=== PATIENT | female | born 1960 | race Caucasian/White ===

== ENCOUNTER 2019-06-21 11:56 | Outpatient (CLI) | payer BC, SELFPAY ==
--- NOTE | 2019-06-21 12:12 | XRR_ITS ---
PROCEDURE INFORMATION: Exam: XR Chest, 2 Views Exam date and time: 06/21/2019 12:26 PM Age: 58 years old Clinical indication: Condition or disease; Lung condition and disease; Pneumonia; Other: Not specified TECHNIQUE: Imaging protocol: XR of the chest Views: 2 views. COMPARISON: No relevant prior studies available. FINDINGS: Lungs: Low lung volumes No consolidation. Pleural space: Unremarkable. No pleural effusion. No pneumothorax. Heart/Mediastinum: Unremarkable. No cardiomegaly. Bones/joints: There is dorsal spine osteopenia and osteoarthritis. XR/XR chest 2V* [id number] IMPRESSION: No acute findings. Lung low lung volumes Dorsal spine osteopenia and osteoarthritis
== END 2019-06-21 11:57 | disposition home or self-care (01) ==
LOC: RAD 12:08
PROVIDERS: Family Provider Family Medicine; PCP Family Medicine; Visit Provider Family Medicine
DX: J18.9 Pneumonia, unspecified organism (principal); M85.88 Other specified disorders of bone density and structure, other site
CPT/HCPCS: 71046

== ENCOUNTER 2020-08-15 11:29 | Outpatient (CLI) | payer OTHER, SELFPAY ==
--- NOTE | 2020-08-15 11:39 | XRR_ITS ---
PROCEDURE INFORMATION: Exam: XR Right Finger(s) Exam date and time: 08/15/2020 11:43 AM Age: 60 years old Clinical indication: Pain; Finger(s); Right; Additional info: R thumb pain TECHNIQUE: Imaging protocol: XR Right fingers. Views: Minimum 2 views. COMPARISON: No relevant prior studies available. FINDINGS: Bones/joints: Negative for acute bony abnormality. Bone spurs are present in the dorsal aspect of the interphalangeal articulation. Soft tissues: Normal. XR/XR finger RT min 2V 12130 IMPRESSION: 1. No acute findings. 2. Bone spurs dorsal aspect of the thumb
== END 2020-08-15 11:30 | disposition home or self-care (01) ==
PROVIDERS: Family Provider Family Medicine; PCP Family Medicine; Visit Provider Family Medicine
DX: M79.644 Pain in right finger(s) (principal)
CPT/HCPCS: 73140

== ENCOUNTER → 2020-12-13 09:42 | Outpatient (BNVA) | payer OTHER, SELFPAY | PROVIDERS: Family Provider Family Medicine; PCP Family Medicine; Visit Provider Internal Medicine Rheumatology | DX: H54.61 Unqualified visual loss, right eye, normal vision left eye (principal); M19.90 Unspecified osteoarthritis, unspecified site; R76.8 Other specified abnormal immunological findings in serum; Z11.59 Encounter for screening for other viral diseases; Z11.1 Encounter for screening for respiratory tuberculosis; Z79.899 Other long term (current) drug therapy; R20.2 Paresthesia of skin; Z71.89 Other specified counseling | CPT/HCPCS: 99205 ==

== ENCOUNTER 2020-12-14 10:20 | Outpatient (CLI) | payer OTHER, SELFPAY ==
--- NOTE | 2020-12-14 10:36 | XR_ITS ---
WS: [id number] XR hand LT min 3V* [id number] REASON FOR EXAM: Z79.899 - Other care home (current) drug therapy FINDINGS: Very mild narrowing of the joint spaces with subchondral sclerosis in the MIP and DIP joints of the f ingers and thumb. Similar changes seen in the metacarpal phalangeal joint of the thumb and in the met acarpal trapezius joint of the thumb. No erosions. No soft tissue calcifications. XR/XR hand LT min 3V* [id number] IMPRESSION: Mild changes of arthropathy compatible with osteoarthritis.
--- NOTE | 2020-12-14 10:36 | XR_ITS ---
WS: [id number] XR foot LT min 3V* [id number] REASON FOR EXAM: Z79.899 - Other custodial (current) drug therapy FINDINGS: In the forefoot there is mild to moderate narrowing with subchondral sclerosis in the MIP and DIP alice nts of the toes. Similar findings noted in the metatarsal phalangeal joint of the great toe with mild medial angulation. There is calcification in the tendinous insertion on the lateral proximal aspect of the fifth metatarsal. In the mid foot similar joint space findings are noted as in the forefoot. In the hindfoot similar joint space findings as noted as in the forefoot and midfoot. Large enthesoph ytes at the insertion of the Achilles tendon and plantar fascia on the calcaneus.Enthesophyte and gasper cification in the long plantar ligament. No focal bone lesion, soft tissue calcification, or bony erosion identified. XR/XR foot LT min 3V* [id number] IMPRESSION: Arthropathic changes compatible with osteoarthritis.
--- NOTE | 2020-12-14 10:36 | XR_ITS ---
WS: [id number] XR hand RT min 3V* [id number] REASON FOR EXAM: Z79.899 - Other halfway (current) drug therapy FINDINGS: Mild narrowing of the joint spaces with subchondral sclerosis in the DIP and MIP joints of the finger s and thumb. No focal bone lesion. Small calcification adjacent to the interphalangeal joint of the thumb is likely within a Heberden's node. Similar arthropathy seen in the metacarpal trapezius joint of the thumb and in the metacarpal phalang eal joint of the thumb. No erosions. The remaining joints of the hand are unremarkable. XR/XR hand RT min 3V* [id number] IMPRESSION: Findings of mild arthropathy compatible with osteoarthritis.
--- NOTE | 2020-12-14 10:36 | XR_ITS ---
WS: [id number] XR foot RT min 3V* [id number] REASON FOR EXAM: Z79.899 - Other shelter (current) drug therapy FINDINGS: In the forefoot there are mild to moderate narrowing of the joint spaces with subchondral sclerosis i n the MIP and DIP joints of the toes. Similar findings in the metatarsal phalangeal joint of the grea t toe where there is mild medial angulation. Calcification in the tendinous insertion on the lateral proximal fifth metatarsal. In the midfoot there are similar joint findings as noted in the forefoot with the addition of margina l osteophytes. In the hindfoot there are similar joint findings as noted in the forefoot and midfoot. Enthesophytes at the insertion of the Achilles tendon and plantar fascia. There are calcifications along the course of the plantar fascia. No focal bone lesions, soft tissue calcifications, or bony erosions noted. XR/XR foot RT min 3V* [id number] IMPRESSION: Arthropathic findings consistent with osteoarthritis.
--- NOTE | 2020-12-14 10:36 | XR_ITS ---
WS: [id number] XR chest 2V* [id number] REASON FOR EXAM: Z79.899 - Other jail (current) drug therapy FINDINGS: The chest is unchanged compared to 06/21/2019. Moderate tortuosity of the thoracic aorta without aneury smal dilatation. The heart is at the upper limits of normal in size. Calcified granulomatous disease in both hemithoraces. No active pulmonary parenchymal or pleural dise ase. Mild to moderate degenerative spondylosis in the mid and lower thoracic spine. Bony thorax otherwise intact. XR/XR chest 2V* [id number] IMPRESSION: Stable chest with no acute abnormality.
[2020-12-14 11:22] LABS: Basophils % 0.4 %; Eosinophils # 0.1 10^3/uL (0.0-0.8); Eosinophils % 1.8 %; Hematocrit 41.3 % (37.0-47.0); Lymphocytes # 1.7 10^3/uL (0.8-4.8); Lymphocytes % 30.2 %; Mean Corpuscular HGB Conc 31.5 g/dL (30.0-36.0); Mean Corpuscular Hemoglobin 29.4 pg (28.0-34.0); Mean Corpuscular Volume 93.4 fL (81-99); Mean Platelet Volume 10.4 fL (7.4-10.4); Monocytes # 0.4 10^3/uL (0.2-0.9); Monocytes % 7.6 %; Neutrophils # 3.29 10^3/uL (1.8-7.7); Neutrophils % 59.8 %; Nucleated Red Blood Cells % 0 %; Platelet Count 255 10^3/cmm (130-400); Red Blood Count 4.42 10^6/uL (4.1-5.3); Red Cell Distribution Width 13.8 % (12.1-15.1); White Blood Count 5.5 10^3/uL (4.0-10.0)
[2020-12-14 11:35] LABS: Add Urine Culture? Yes; Bacteria Urine 1+ /hpf; Bilirubin Urine Neg (Negative); Blood Urine 2+ (Negative); Glucose Urine UA Norm (Normal); Ketones Urine Negative (Negative); Leukocyte Esterase Urine 2+ (Negative); Nitrate Urine Negative (Negative); Protein Urine Neg (Negative); Specific Gravity, Urine 1.015 (1.005-1.030); Squamous Epithelial Cell Urine 0-4 /hpf (0-5); Urine Appearance Cloudy (CLEAR); Urine Color Yellow (Yellow); Urobilinogen Urine Norm (Negative); WBC Urine 25-40 /hpf (0-5); pH Urine 5 (5-7)
[2020-12-14 11:49] LABS: Urine Creatinine 203 mg/dL (28-217); Urine Protein Random 20 mg/dL
[2020-12-14 11:50] LABS: Alanine Aminotransferase 28 U/L (0-33); Albumin Level 4.3 g/dL (3.5-5.2); Alkaline Phosphatase 102 IU/L (35-105); Aspartate Amino Transferase 18 U/L (0-32); Globulin 2.9 g/dL (1.3-4.6); Glomerular Filtration Rate 85.6 mL/min (90-130); Total Bilirubin 0.4 mg/dL (0.15-1.2); Total Protein 7.2 g/dL (6.6-8.7)
[2020-12-14 12:05] LABS: 25 Hydroxy Vitamin D 29 ng/mL (30-100)
[2020-12-14 12:09] LABS: Hepatitis B Core AB, Total Non-Reactive (Nonreactive); Hepatitis B Surface Antigen Non-Reactive (Nonreactive); Hepatitis C Virus Antibody Non-Reactive (Nonreactive)
[2020-12-14 12:21] LABS: Complement C3 153 mg/dL (90-180)
[2020-12-14 12:25] LABS: Erythrocyte Sedimentation Rate 33 mm/hr (0-15)
[2020-12-15 10:27] LABS: COMPLEMENT COMPONENT C3C 166 mg/dL (83-193); COMPLEMENT COMPONENT C4C 34 mg/dL (15-57)
[2020-12-15 13:47] LABS: Cyclic Citrullinated Peptide <16 UNITS
[2020-12-15 14:02] LABS: CENTROMERE B ANTIBODY <1.0 NEG AI (<1.0 NEG); JO-1 ANTIBODY <1.0 NEG AI (<1.0 NEG); RNP ANTIBODY <1.0 NEG AI (<1.0 NEG); SCL-70 ANTIBODY <1.0 NEG AI (<1.0 NEG); SJOGREN'S ANTIBODY (SS-A) <1.0 NEG AI (<1.0 NEG); SM ANTIBODY <1.0 NEG AI (<1.0 NEG); SS-B <1.0 NEG AI (<1.0 NEG)
[2020-12-15 14:41] LABS: THYROID PEROXIDASE ANTIBODIES 1 IU/mL (<9)
[2020-12-15 15:42] LABS: COMPLEMENT, TOTAL (CH50) >60 U/mL (31-60)
[2020-12-15 15:47] LABS: Angiotensin Converting Enzyme 5 U/L (9-67)
[2020-12-16 14:43] LABS: Quantiferon Mitogen 9.48 IU/mL; Quantiferon Nil 0.07 IU/mL; Quantiferon Plus TB1 <0.00 IU/mL; Quantiferon Plus TB2 <0.00 IU/mL; Quantiferon TB Gold NEGATIVE (NEGATIVE)
[2020-12-16 19:02] LABS: HLA-B27 NEGATIVE (NEGATIVE)
[2020-12-18 11:32] LABS: ANA PATTERN Nuclear, Homogeneous; ANA SCREEN, IFA POSITIVE (NEGATIVE)
[2020-12-19 22:38] LABS: DNA AB (DS) CRITHIDIA,IFA NEGATIVE (NEGATIVE)
== END 2020-12-14 10:21 | disposition home or self-care (01) ==
LOC: RAD 10:32
PROVIDERS: PCP Family Medicine; Visit Provider Internal Medicine Rheumatology
DX: M19.90 Unspecified osteoarthritis, unspecified site (principal); M45.9 Ankylosing spondylitis of unspecified sites in spine; R76.8 Other specified abnormal immunological findings in serum; Z79.899 Other long term (current) drug therapy; Z11.59 Encounter for screening for other viral diseases; Z11.1 Encounter for screening for respiratory tuberculosis
CPT/HCPCS: 36415; 71046; 73130; 73630; 80076; 81001; 82164; 82306; 82565; 82570; 84156; 85025; 85651; 86140; 86160; 86162; 86235; 86255; 86376; 86480; 86704; 86803; 86812; 87340

== ENCOUNTER 2021-01-23 14:11 | Outpatient (CLI) | payer OTHER, SELFPAY | END 2021-01-23 14:12 | disposition home or self-care (01) | LOC: RADSHAW 01-24 10:46 | PROVIDERS: PCP Family Medicine; Visit Provider Internal Medicine Rheumatology | DX: H54.61 Unqualified visual loss, right eye, normal vision left eye (principal); M19.90 Unspecified osteoarthritis, unspecified site; R76.8 Other specified abnormal immunological findings in serum; Z79.899 Other long term (current) drug therapy; Z71.89 Other specified counseling | CPT/HCPCS: 99214 ==

== ENCOUNTER 2021-02-28 08:42 | Outpatient (CLI) | payer OTHER, SELFPAY ==
--- NOTE | 2021-02-28 08:47 | MR_ITS ---
WS: [id number] MRI BRAIN WITHOUT CONTRAST HISTORY: R76.8 - Other specified abnormal immunological findings COMPARISON: None available. TECHNIQUE: Diffusion imaging, multiplanar T1, T2 and FLAIR imaging obtained. Patient refused IV contrast. No evidence for acute infarct or hemorrhage. Junior-white matter differentiation is normal. There are v davina few subcortical white matter lesions of the T2 and FLAIR sequences. No prior infarct. No remote or acute infarcts are volume loss. Ventricles and extra-axial spaces are normal. No inferior displacement of cerebellar tonsils. The sella turcica and pituitary gland are unremarkabl e. Dural venous sinuses and [place] demonstrate no abnormality on this unenhanced studies. Paranasal sinuses: Clear. Mastoid air cells: Normal. Calvarium and scalp: Intact. MR/MR head wo con* [id number] IMPRESSION: 1. No acute infarct or hemorrhage. 2. Normal age-appropriate MRI brain.
== END 2021-02-28 08:43 | disposition home or self-care (01) ==
PROVIDERS: PCP Family Medicine; Visit Provider Internal Medicine Rheumatology
DX: R76.8 Other specified abnormal immunological findings in serum (principal); H54.61 Unqualified visual loss, right eye, normal vision left eye; H46.9 Unspecified optic neuritis; R20.2 Paresthesia of skin
CPT/HCPCS: 70551

== ENCOUNTER → 2021-05-01 08:29 | Outpatient (BNVA) | payer SELFPAY | PROVIDERS: PCP Family Medicine; Visit Provider Dermatology | DX: Z01.89 Encounter for other specified special examinations (principal) ==

== ENCOUNTER 2021-08-03 09:47 | Outpatient (CLI) | payer OTHER, SELFPAY ==
--- NOTE | 2021-08-03 10:00 | MM_ITS ---
WS: [id number] BILATERAL 3D TOMOSYNTHESIS DIGITAL SCREENING MAMMOGRAPHY WITH CAD CLINICAL INFORMATION: SCREEN HISTORY: Screening mammogram. No current complaints. COMPARISON: September 03, 2007 TECHNIQUE: Bilateral CC and MLO views. FINDINGS: Scattered fibroglandular densities bilaterally. No suspicious focal mass, asymmetry, calcifications, or architectural distortion. No evidence of malignancy. MM/[place] [id number] IMPRESSION: BI-RADS: 1-Negative FOLLOW UP: 1 Year Follow-up Recommend return to annual screening mammography.
== END 2021-08-03 09:48 | disposition home or self-care (01) ==
LOC: RADSHAW 09:49
PROVIDERS: PCP Family Medicine; Visit Provider Family Medicine
DX: Z12.31 Encounter for screening mammogram for malignant neoplasm of breast (principal)
CPT/HCPCS: 77063; 77067

== ENCOUNTER → 2021-10-30 09:51 | Outpatient (BNVA) | payer SELFPAY | PROVIDERS: PCP Family Medicine; Visit Provider Dermatology | DX: Z01.89 Encounter for other specified special examinations (principal) ==

== ENCOUNTER → 2022-04-30 12:48 | Outpatient (BNVA) | payer SELFPAY | PROVIDERS: PCP Family Medicine; Visit Provider Dermatology | DX: Z01.89 Encounter for other specified special examinations (principal) ==

== ENCOUNTER → 2022-05-07 12:26 | Outpatient (BNVA) | payer OTHER, SELFPAY | PROVIDERS: PCP Family Medicine; Visit Provider Family Medicine | DX: R30.0 Dysuria (principal); N39.0 Urinary tract infection, site not specified | CPT/HCPCS: 81000; 87077; 87086; 87184 ==

== ENCOUNTER → 2022-10-29 08:40 | Outpatient (BNVA) | payer OTHER, SELFPAY | PROVIDERS: PCP Family Medicine; Visit Provider Dermatology | DX: Z01.89 Encounter for other specified special examinations (principal) ==

== ENCOUNTER → 2023-01-28 08:20 | Outpatient (BNVA) | payer OTHER, SELFPAY | PROVIDERS: PCP Family Medicine; Visit Provider Dermatology | DX: Z01.89 Encounter for other specified special examinations (principal) ==

== ENCOUNTER → 2023-07-29 08:52 | Outpatient (BNVA) | payer SELFPAY | PROVIDERS: PCP Family Medicine; Visit Provider Nurse Practitioner | DX: Z01.89 Encounter for other specified special examinations (principal) ==

== ENCOUNTER → 2024-02-21 11:41 | Outpatient (BNVA) | payer OTHER, SELFPAY | PROVIDERS: PCP Family Medicine; Visit Provider Nurse Practitioner Family | DX: N39.0 Urinary tract infection, site not specified (principal) | CPT/HCPCS: 81000 ==